=== PATIENT | male | born 1945 | race Caucasian/White ===

== ENCOUNTER 2025-06-13 10:03 | Outpatient (RCR) | payer OTHER, SELFPAY | END 2025-06-13 23:59 | disposition home or self-care (01) | LOC: CRHB 10:03 | PROVIDERS: ATTENDING PHYSICIAN Internal Medicine Interventional Cardiology; FAMILY PHYSICIAN Internal Medicine | DX: Z95.5 Presence of coronary angioplasty implant and graft (principal) | CPT/HCPCS: G0422; G0423 ==

== ENCOUNTER 2025-07-09 09:45 | Outpatient (RCR) | payer OTHER, SELFPAY | END 2025-07-09 23:59 | disposition home or self-care (01) | LOC: CRHB 09:45 | PROVIDERS: ATTENDING PHYSICIAN Internal Medicine Interventional Cardiology; FAMILY PHYSICIAN Internal Medicine | DX: I25.10 Atherosclerotic heart disease of native coronary artery without angina pectoris (principal); Z95.5 Presence of coronary angioplasty implant and graft (principal) | CPT/HCPCS: G0422; G0423 ==

== ENCOUNTER 2025-08-13 08:30 | Outpatient (RCR) | payer OTHER, SELFPAY | END 2025-08-13 23:59 | disposition home or self-care (01) | LOC: CRHB 08:30 | PROVIDERS: ATTENDING PHYSICIAN Internal Medicine Interventional Cardiology; FAMILY PHYSICIAN Internal Medicine | DX: Z95.5 Presence of coronary angioplasty implant and graft (principal); I25.10 Atherosclerotic heart disease of native coronary artery without angina pectoris | CPT/HCPCS: G0422; G0423 ==